=== PATIENT | male | born 1970 | race African-American/Black ===

== ENCOUNTER 2020-09-28 00:16 | Emergency (ER) | payer OTHER, SELFPAY ==
[2020-09-28 00:26] VITALS: BP 138/66; PULSE 87; RESP 18; TEMP 36.6; O2SAT 97
--- NOTE | 2020-09-28 02:09 | ED_ITS ---
HPI - Extremity Problem General Chief complaint: Extremity Problem,Nontraumatic Stated complaint: swelling to lower extremities Time Seen by Provider: 09/28/20 00:29 History of Present Illness HPI Narrative: Patient is a 50-year-old male who presents ER with lower extremity swelling. Worsening over the last couple of days. Reports he has been out of his Lasix. He would like to have it refilled. He is unsure on the dose that he takes. He denies any chest pain or chest pressure. No shortness of breath. No exertional weakness. He is noticed some weeping coming from his legs that is new. Also reports some pink discoloration that occurs when his fluid builds up. He has been afebrile. Review of Systems Review of Systems: All systems reviewed & are unremarkable except as noted in HPI and below Constitutional: Constitutional: Denies chills, Denies fever(s) and Denies w eakness Cardiovascular: Cardiovascular: Denies chest pain and Denies radiating jaw, neck or arm pain Respiratory: Respiratory: Denies cough, Denies dyspnea and Denies wheezing Gastrointestinal: Gastrointestinal: Denies nausea and Denies vomiting Musculoskeletal: Musculoskeletal: Denies back pain and Denies muscle cramps Comments: Lower extremity edema Integumentary/Breasts: Skin/Breast: Reports skin ulcer (Weeping serous fluid) Exam Narrative: Exam Narrative: GENERAL: Well-appearing, morbidly obese, and in no acute distress. HEAD: Normocephalic, atraumatic. ENT: Mucous membranes moist. CHEST: Clear to auscultation. No respiratory distress. HEART: Regular rate and rhythm. Normal peripheral pulses. ABDOMEN: Soft, nontender, nondistended, normal active bowel sounds. EXTREMITIES: Normal range of motion. 3+ edema. SKIN: Warm, dry. Slight erythema to lower extremities bilaterally likely representing reactive edema. There are some weeping ulcers to the same area bilaterally. NEURO: Alert and oriented x3. PSYCH: Normal mood and affect. Course Course Emergency Course: Chart review shows patient last filled Lasix 40 mg on July 12. Patient likely poorly compliant. Will discharge with a prescription of Lasix and he needs to follow-up with his primary care physician. Vital Signs Vital signs: Vital Signs Temperature 98 F 09/28/20 00:26 Pulse Rate 87 09/28/20 00:26 Respiratory Rate 18 09/28/20 00:26 Blood Pressure 138/66 09/28/20 00:26 Pulse Oximetry 97 09/28/20 00:26 Temperature 98 F 09/28/20 00:26 Pulse Rate 87 09/28/20 00:26 Respiratory Rate 18 09/28/20 00:26 Blood Pressure 138/66 09/28/20 00:26 Pulse Oximetry 97 09/28/20 00:26 Discharge Plan Discharge Clinical Impression: Edema of lower extremity Patient Disposition: Home, Self-Care Condition: Stable Instructions: Edema (ED) Additional Instructions: Return the ER if you have chest pain or shortness of breath, you have fever over 100.4 ?F, you have additional concerns. Take your Lasix to help the swelling in her legs go down. Follow-up with your primary care doctor so you can have your prescription written at regular intervals. Prescriptions: New furosemide 40 mg tablet 40 mg PO DAILY Qty: 30 RF: 0 Follow-up/Referrals: Manisha,MD Ryan [Primary Care Provider] - 1 Week
[2020-09-28] MEDS: FUROSEMIDE INJ 40 MG/4 ML VIAL IV PUSH (02:44)
[2020-09-28 04:05] VITALS: BP 134/70; PULSE 72; RESP 18; O2SAT 97
== END 2020-09-28 04:07 | disposition home or self-care (01) ==
PROVIDERS: Emergency Provider Emergency Medicine; PCP Internal Medicine
DX: R60.0 Localized edema (principal)
CPT/HCPCS: 96374; 99284; J1940

== ENCOUNTER 2020-11-01 15:03 | Emergency (ER) | payer OTHER, SELFPAY ==
--- NOTE | 2020-11-01 16:11 | ED.WOUNDLAC ---
HPI - Wound/Laceration General Chief Complaint: Skin/Abscess/Foreign Body Stated Complaint: non healing wound Time Seen by Provider: 11/01/20 16:31 Source: patient and RN notes reviewed Mode of arrival: ambulatory Limitations: no limitations History of Present Illness HPI narrative: 50-year-old male presents concern for chronic wounds on his left lower leg. Reports that wounds have been present for approximately 8 months. Reports he was seen in the emergency room and given Lasix for which she has been taking for approximately a month, however he is out. Reports he is on been unable to see his primary care doctor. He denies any purulent drainage from the wounds, denies any injury. Reports bilateral lower leg swelling. Related Data Allergies Allergy/AdvReac Type Severity Reaction Status Date / Time Penicillins Allergy Severe Anaphylaxis Verified 11/01/20 16:48 Review of Systems Review of Systems: Narrative: CONSTITUTIONAL: Denies malaise, chills, sweats, or fever. CARDIOVASCULAR: Denies chest pain, palpitations, or edema. RESPIRATORY: Denies cough or dyspnea. SKIN: Reports chronic wounds on the left lower leg MUSCULOSKELETAL: Denies muscle skeletal pain, reports bilateral lower leg swelling All systems reviewed & are unremarkable except as noted in HPI and below PMFSH Comments At time of signature, agree with nursing past medical, surgical, social and family history. There is no relevant family history pertinent to the presenting complaint Exam Narrative: Exam Narrative: GENERAL: Well-appearing, well-nourished, and in no acute distress. HEAD: Normocephalic, atraumatic. EYES: PERRLA, conjunctivae clear, and EOMI. ENT: Mucous membranes moist. NECK: Supple. No lymphadenopathy CHEST: Clear to auscultation. No respiratory distress. Bilateral lower extremity nonpitting edema HEART: Regular rate and rhythm. SKIN: Warm, dry. Chronic wounds in various stages of healing to the left lower leg above the ankle, no induration, purulent drainage noted. NEURO: Alert and oriented x3. PSYCH: Normal mood and affect Course Course Emergency Course: Extensive discussion with patient regarding peripheral vascular disease, proper care for his legs, proper follow-up with his primary care provider. Patient is aware of diagnosis, understands and agrees to treatment plan. Anticipatory guidance given. Patient agrees to follow-up as directed and is aware of reasons to seek care at the emergency department. Portions of this record may have been created with voice recognition software Vital Signs Vital signs: Reviewed. MDM - Wound/Laceration MDM Narrative Medical decision making narrative: Exam findings show no acute concerns or changes; patient is non-toxic appearing and is in no distress. Patient is appropriate for outpatient treatment and follow-up. Critical Care Time Critical Care Time Critical Care Time: No Discharge Plan Discharge Clinical Impression: Edema of both lower legs, Chronic wound of extremity, Medication refill Patient Disposition: Home, Self-Care Condition: Stable Instructions: Antibiotic Form, Peripheral Vascular Disease (ED) Additional Instructions: Take antibiotic as directed. Apply lotion to your lower legs daily. Use compression socks daily during waking hours, you may take off at nighttime. Wear every day of the week. Elevate your legs as often as possible. Follow-up with your primary care doctor regarding your lower leg swelling and evaluation and treatment. If wounds continue to have slow healing follow-up with your primary care doctor for referral to wound care. Prescriptions: New (DME) compr.stocking,knee,long,x-lrg Misc See Rx Instructions .Route Qty: 2 RF: 0 azithromycin [Zithromax Z-Breezy] 250 mg tablet See Rx Instructions .ROUTE .COMPLEX Qty: 6 RF: 0 furosemide [Lasix] 40 mg tablet 40 mg PO DAILY Qty: 30 RF: 0 No Action furosemide 40 mg tablet 40 mg PO DAILY Qty: 30
[2020-11-01 16:26] VITALS: BP 140/88; PULSE 92; RESP 19; TEMP 36.1; O2SAT 98
== END 2020-11-01 17:00 | disposition home or self-care (01) ==
PROVIDERS: Emergency Provider Nurse Practitioner
DX: R60.0 Localized edema (principal); S81.802A Unspecified open wound, left lower leg, initial encounter; X58.XXXA Exposure to other specified factors, initial encounter; Z76.0 Encounter for issue of repeat prescription; I10 Essential (primary) hypertension
CPT/HCPCS: 99213; G0463

== ENCOUNTER 2021-11-25 12:46 | Outpatient (CLI) | payer OTHER, SELFPAY ==
--- NOTE | 2021-11-25 | ECHO_ITS ---
Patient Info Name: Anabelle Maki Javier Age: 51 years : 1970 Gender: Male Ht: 72 in Wt: 430 lbs BSA: 3.26 m2 HR: 95 bpm BP: 137 / 85 mmHg Heart Rhythm: Sinus Rhythm Technical Quality: Poor Exam Date: 11/25/2021 1:23 PM Exam Location: [facility] Patient Status: Outpatient Admit Date: 11/25/2021 Staff Ordering Physician: JaniceMaegan Senior Procurement Manager: Stacie Vazquez RDCS Attending Provider: Maegan Alaniz Exam Type: CA echo doppler color flow Study Info Indications I50.9 - Heart failure, unspecified Complete two-dimensional, color flow and Doppler transthoracic echocardiogram is performed. Reason for Poor Study: patient body habitus Summary 1. Complete two-dimensional, color flow and Doppler transthoracic echocardiogram is performed. 2. Left ventricular chamber dimension is normal. 3. Left ventricular systolic function is normal, estimated at 65-70%. 4. There is mildly increased left ventricular wall thickness. 5. The left ventricular diastolic function is normal. 6. Right ventricular chamber dimension is mildly enlarged. 7. Right ventricular systolic function is reduced. 8. There is mild tricuspid valve regurgitation. 9. Mild pulmonary hypertension, estimated pulmonary arterial systolic pressure is 44 mmHg. 10. There is mild pulmonic regurgitation. Left Ventricle Left ventricular chamber dimension is normal. Left ventricular systolic function is normal, estimated at 65-70%. There is mildly increased left ventricular wall thickness. The left ventricular diastolic function is normal. Right Ventricle Right ventricular chamber dimension is mildly enlarged. Right ventricular systolic function is reduced. Left Atria Left atrial chamber dimension is normal. Right Atria Right atrial chamber dimension is normal. Atrial Septum Intact interatrial septum visualized by color flow imaging. Aortic Valve The aortic valve is trileaflet. There is no aortic valve sclerosis. There is no aortic valve stenosis. There is trace aortic valve regurgitation. Pulmonic Valve The pulmonic valve is normal. There is no pulmonic valve stenosis. There is mild pulmonic regurgitation. Mitral Valve The mitral valve has thickened leaflets. There is no mitral valve stenosis. There is trace mitral valve regurgitation. Tricuspid Valve The tricuspid valve leaflets are normal. There is no significant tricuspid valve stenosis. There is mild tricuspid valve regurgitation. Mild pulmonary hypertension, estimated pulmonary arterial systolic pressure is 44 mmHg. Pericardium/Pleural The pericardium appears normal. There is no pericardial effusion. Inferior Vena Cava Dilated inferior vena cava with >50% collapse upon inspiration consistent with elevated right atrial pressure, 10 mmHg. Aorta The aortic root size at the sinus of Valsalva is normal. Left Ventricular Outflow Tract Name Value Normal LVOT 2D LVOT Diameter 2.0 cm LVOT Doppler LVOT Peak Gradient 4 mmHg LVOT Mean Gradient 3 mmHg LVOT VTI
== END 2021-11-25 12:47 | disposition home or self-care (01) ==
PROVIDERS: PCP Physician Assistant; Visit Provider Physician Assistant
DX: I50.9 Heart failure, unspecified (principal); I27.20 Pulmonary hypertension, unspecified; I08.3 Combined rheumatic disorders of mitral, aortic and tricuspid valves
CPT/HCPCS: 93306

== ENCOUNTER 2022-05-26 20:30 | Emergency (ER) | payer OTHER, SELFPAY ==
[2022-05-26] VITALS (19 sets, daily range): BP systolic 117–144; BP diastolic 72–108; PULSE 97–122; RESP 17–37; TEMP 36.6; O2SAT 92–93
--- NOTE | ~2022-05-26 | CT_ITS ---
EXAMINATION: CTA chest PE protocol DATE: 05/27/2022 08:10 SENIOR COMMUNICATIONS SPECIALIST INDICATION: Dyspnea. TECHNIQUE: Computed tomographic angiography (CTA) of the chest was performed with 100 mL Omnipaque-35 0 intravenous contrast. The dose-length product was 1078.84 mGy-cm. Maximum intensity projection 3D-r econstructions of the aorta and other arteries were constructed by the technologist on a separate wor kstation. Automated exposure control and iterative reconstruction technique were employed. COMPARISON: Chest x-ray dated 05/26/2022. FINDINGS: Study is technically adequate. There is a large thrombus burden involving the main pulmonar y arteries as well as the segmental branches of all lobes. There is hiatal hernia. No significant ple ural or pericardial effusion. No thoracic lymphadenopathy. There is evidence for right heart strain. There are irregular shaped masses of the left upper lobe, largest measuring 2.5 cm. There are subsegm ental left lower lobe nodules. No endobronchial lesions. No pneumothorax. IMPRESSION: 1. Extensive bilateral pulmonary embolism, large thrombus burden. 2: Left upper and lower lobe pulmonary nodules, largest left upper lobe measuring 2.5 cm. These may b e secondary to infectious/inflammatory process, although malignancy is not excluded. These nodules quijano ve an atypical appearance for pulmonary infarction. Reviewed, dictated and finalized at location A. OR COMMUNICATIONS SPECIALIST IMPRESSION: 1. Extensive bilateral pulmonary embolism, large thrombus burden. 2: Left upper and lower lobe pulmonary nodules, largest left upper lobe measuri ng 2.5 cm. These may be secondary to infectious/inflammatory process, although malignancy is not excluded. These nodules have an atypical appearance for pulmo nary infarction.
--- NOTE | ~2022-05-26 | XR_ITS ---
EXAMINATION: XR chest 1V portable Exam Date/Time: 05/26/2022 22:08 TYPING BOOKKEEPER HISTORY: cough, sob. hx htn Comparison: None available. RESULT: Lines, tubes, and devices: None. Lungs and pleura: Clear. Cardiomediastinal silhouette: Unremarkable. Other: No acute osseous or upper abdominal finding. IMPRESSION: No acute cardiopulmonary process. Reviewed, dictated and finalized at location K. NG BOOKKEEPER
--- NOTE | 2022-05-26 20:43 | ECG_ITS ---
Measurements Intervals Coram Rate: 113 P: 208 DE: 81 QRS: 108 QRSD: 189 T: -49 QT: 396 QTc: 545 Interpretive Statements Probable AFib RVR INDETERMINATE AXIS INTRAVENTRICULAR CONDUCTION DELAY [130+ ms QRS DURATION] NO PREVIOUS ECG AVAILABLE FOR COMPARISON Electronically Signed On 05-27-2022 12:49:52 ORGANIC CHEMISTRY PROFESSOR by Raysa Villarreal M.D.
[2022-05-26] MEDS: IPRATROPIUM BR 0.02% INH SOLN 0.5 MG/2.5 ML VIAL INHALATION (20:58)
[2022-05-26] MEDS: ALBUTEROL SULFATE NEB 2.5 MG/3 ML INH INHALATION (20:58)
[2022-05-26 21:08] LABS: Alveolar/Arterial O2 Gradient 132.4 mmHg; Base Excess ABG -0.5 mEq/l (+/-2.0); Fractional Inspired Oxygen 32 %; HCO3 ABG 22.7 mEq/l (22.0-26.0); Oxygen Content ABG 16.5 %vol (16.0-22.0); Oxygen Saturation ABG 91.1 % (95.0-100.0); PCO2 ABG 33.4 mmHg (35.0-45.0); PO2 ABG 56.7 mmHg (80.0-100.0); PO2 FiO2 Ratio Arterial Blood 1.77 %; Total Hemoglobin 13.5 g/dL (12.0-18.0); pH ABG 7.451 (7.350-7.450)
[2022-05-26 21:09] LABS: Device NASAL CANNULA; Modified Allen's Test Pass; Oxyhemoglobin 87.2 % THb (90.0-100.0); Site Drawn RIGHT RADIAL
--- NOTE | 2022-05-26 21:13 | ED.GENADULT ---
HPI - General Adult General Chief complaint: Shortness of Breath/Dyspnea Stated complaint: sob Time Seen by Provider: 05/26/22 20:34 History of Present Illness HPI narrative: Patient 52-year-old gentleman who presents emerged part with chief complaint of shortness of breath. The patient reports that he was recently started on doxycycline for ulcerations on his lower extremities. Patient reports that he started vomiting and then today started feeling very short of breath. Patient reports that when EMS arrived they started him on oxygen Related Data Allergies Allergy/AdvReac Type Severity Reaction Status Date / Time Penicillins Allergy Severe Anaphylaxis Verified 11/01/20 16:48 Review of Systems Review of Systems: A 10 system review of systems was completed on the patient and is negative except for what is stated in the HPI. Nursing and ancillary documentation was reviewed. Exam Narrative: GENERAL: Well-appearing, well-nourished, and in no acute distress. HEAD: Normocephalic, atraumatic. EYES: PERRLA and EOMI. ENT: Nares clear, no rhinorrhea or epistaxis. Mucous membranes moist. NECK: Supple. CHEST: Clear to auscultation. No respiratory distress. HEART: Regular rate and rhythm. No murmur heard. Normal peripheral pulses. ABDOMEN: Soft, nontender, nondistended, normal active bowel sounds. EXTREMITIES: Normal range of motion. No edema. SKIN: Warm, dry, no rash. NEURO: No focal deficits. Alert and oriented x3. PSYCH: Normal mood and affect. Course Course Emergency Course: Patient has history of prior DVT. The patient was hypoxic in the emergency department and requiring supplemental oxygen. ABG showed respiratory alkalosis and hypoxia. Chest x-ray did not show a focal infiltrate. The patient had a elevated troponin and a BNP that was 2020. Due to this there is concern for possible PE CTA chest showed evidence of extensive bilateral PEs with right heart strain. Patient was started on heparin drip Due to the right heart strain the case was discussed with the [facility] for possible intervention. The case was discussed with the fellow on-call and the patient was excepted to the ICU as a wait by attending Dr. Gavin Vital Signs Vital signs: Vital Signs Pulse Rate 103 H 05/26/22 21:06 Respiratory Rate 22 H 05/26/22 21:06 Temperature 36.6 C 05/26/22 21:08 Pulse Rate 111 H 05/26/22 21:14 Respiratory Rate 20 05/26/22 21:14 Blood Pressure 144/72 H 05/26/22 21:08 Pulse Oximetry 93 05/26/22 21:08 Oxygen Delivery Nasal Cannula 05/26/22 21:08 Oxygen Flow Rate 3 05/26/22 21:08 Medical Decision Making Vital Signs Vital Signs: Vital Signs Pulse Rate 103 H 05/26/22 21:06 Respiratory Rate 22 H 05/26/22 21:06 Temperature 36.6 C 05/26/22 21:08 Pulse Rate 111 H 05/26/22 21:14 Respiratory Rate 20 05/26/22 21:14 Blood Pressure 144/72 H 05/26/22 21:08 Pulse Oximetry 93 05/26/22 21:08 Oxygen Delivery Nasal Cannula 05/26/22 21:08 Oxygen Flow Rate 3 05/26/22 21:08 Lab Data 05/26/22 21:50 05/26/22 21:50 Labs: Lab Results 05/26/22 05/26/22 05/26/22 Range/Units 21:50 21:50 21:50 WBC 11.0 H (4.5-10.0) K/mm3 RBC 4.41 L (4.6-6.20) M/mm3 Hgb 12.6 L (14.0-18.0) g/dL Hct 39.0 L (42.0-52.0) % MCV 88.4 (80-100) fl MCH 28.6 (26-34) pg MCHC 32.3 (32-36) g/dl RDW 15.5 H (11.5-14.5) % Plt Count 173 (150-375) k/mm3 MPV 11.6 H (7.4-10.4) fl Immature Gran % (Auto) 0.4 (0-0.5) % Neut % (Auto) 82.5 H (45.5-73.1) % Lymph % (Auto) 10.7 L (18.3-44.2) % [place] % (Auto) 5.5 (2.6-8.5) % Eos % (Auto) 0.7 (0-4.4) % Baso % (Auto) 0.2 (0.2-1.2) % Lymph # (Auto) 1.17 (0.9-3.2) K/mm3 [place] # (Auto) 0.6 (0.1-0.6) K/mm3 Eos # (Auto) 0.1 (0-0.3) K/mm3 Baso # (Auto) 0.0 (0.0-0.1) K/mm3 Abs Immat Gran (auto) 0.04 H (0.00-0.031) K/mm3 Absol
[2022-05-26 22:14] LABS: Basophils Percent Auto 0.2 % (0.2-1.2); Eosinophils Absolute Auto 0.1 K/mm3 (0-0.3); Eosinophils Percent Auto 0.7 % (0-4.4); Hemoglobin 12.6 g/dL (14.0-18.0); Immature Granulocyte Absolute 0.04 K/mm3 (0.00-0.031); Immature Granulocyte Percent A 0.4 % (0-0.5); Lymphocytes Absolute Auto 1.17 K/mm3 (0.9-3.2); Lymphocytes Percent Auto 10.7 % (18.3-44.2); Mean Corpuscular HGB Conc 32.3 g/dl (32-36); Mean Corpuscular Hemoglobin 28.6 pg (26-34); Mean Corpuscular Volume 88.4 fl (80-100); Mean Platelet Volume 11.6 fl (7.4-10.4); Monocytes Absolute Auto 0.6 K/mm3 (0.1-0.6); Monocytes Percent Auto 5.5 % (2.6-8.5); Neutrophils Absolute Auto 9.1 K/mm3 (1.3-6.7); Neutrophils Percent Auto 82.5 % (45.5-73.1); Platelet Count Result 173 k/mm3 (150-375); Red Blood Count 4.41 M/mm3 (4.6-6.20); Red Cell Distribution Width 15.5 % (11.5-14.5)
[2022-05-26 22:31] LABS: INR 1.3; Partial Thromboplastin Time 26.7 SECONDS (22.3-36.8); Prothrombin Time 15.2 Seconds (11.1-14.7)
[2022-05-26 22:40] LABS: Alanine Aminotransferase 81 U/L (6-50); Albumin Level 3.9 g/dL (3.5-5.1); Alkaline Phosphatase 108 U/L (38-126); Anion Gap 11 mmol/L (8-16); Aspartate Amino Transferase 63 U/L (17-59); Bilirubin,Total 0.5 mg/dL (0.2-1.3); Blood Urea Nitrogen 21 mg/dL (9-20); Calcium 8.6 mg/dL (8.4-10.2); Carbon Dioxide 20 mmol/L (22-30); Chloride 108 mmol/L (98-107); Estimated Glomerular Filt Rate > 60; Glucose 176 mg/dL (65-110); Lipase 60 U/L (23-300); Magnesium 1.9 mg/dL (1.6-2.3); Potassium 4.4 mmol/L (3.4-5.0); Sodium 139 mmol/L (137-145)
[2022-05-26 22:57] LABS: NT Pro B Type Natriuretic Pept 2120 pg/mL (19.9-100); Troponin I 0.104 ng/mL (0.000-0.034)
[2022-05-26 23:11] LABS: Lactic Acid Reflex 1.8 mmol/L (0.7-2.0)
[2022-05-26 23:14] LABS: Procalcitonin 0.1 ng/mL
[2022-05-27] VITALS (31 sets, daily range): BP systolic 114–156; BP diastolic 79–110; PULSE 91–116; RESP 16–29; O2SAT 90–95
[2022-05-27] MEDS: HEPARIN SODIUM 5,000 UNITS/ML VIAL 8500 UNITS IV PUSH (03:14)
[2022-05-27] MEDS: HEPARIN SOD/D5W 100 UNITS/ML 25,000 UNITS/250 ML BAG 15 UNITS IV CONT (03:15)
[2022-05-27 05:17] LABS: Appearance Urine Clear (Clear); Bilirubin Urine Negative (Negative); Blood Urine Trace-lysed (Negative); Color Urine Yellow (Yellow); Glucose Urine UA Negative (Negative); Ketones Urine Negative (Negative); Leukocyte Esterase Ur Negative LEU/UL (Negative); Nitrate Urine Negative (Negative); Protein Urine 3+ mg/dL (Negative); Specific Grav Ur 1.025 (1.001-1.035); Urobilinogen Urine 0.2 mg/dL (<2.0); pH Urine 5.5 (5.0-9.0)
[2022-05-27 05:37] LABS: Influenza A QL RT-PCR Negative (Negative); Influenza B QL RT-PCR Negative (Negative); RSV RNA, RT-PCR Negative (Negative); SARS-CoV-2 RNA PCR Negative
[2022-05-27 05:40] LABS: Mucus Urine Rare /lpf; Squamous Epithelial Cell Urine Rare /hpf (Few); WBC Urine 0-3 /hpf
[2022-05-27 05:53] LABS: Add Urine Microscopic? YES
--- NOTE | 2022-05-27 05:58 | PC.NURSE ---
Covid and flu results negative. Called Desiree RN at transfer center. Patient's bed asignment is 8421 bed 1 out the [facility] in the ICU. Phone number is [phone] Report given.
[2022-05-27 06:50] LABS: Basophils Percent Auto 0.2 % (0.2-1.2); Eosinophils Absolute Auto 0.2 K/mm3 (0-0.3); Eosinophils Percent Auto 1.8 % (0-4.4); Hematocrit 37.5 % (42.0-52.0); Hemoglobin 12.1 g/dL (14.0-18.0); Immature Granulocyte Absolute 0.02 K/mm3 (0.00-0.031); Immature Granulocyte Percent A 0.2 % (0-0.5); Lymphocytes Absolute Auto 2.54 K/mm3 (0.9-3.2); Lymphocytes Percent Auto 25.5 % (18.3-44.2); Mean Corpuscular HGB Conc 32.3 g/dl (32-36); Mean Corpuscular Hemoglobin 28.7 pg (26-34); Mean Corpuscular Volume 89.1 fl (80-100); Monocytes Absolute Auto 0.9 K/mm3 (0.1-0.6); Monocytes Percent Auto 8.8 % (2.6-8.5); Neutrophils Absolute Auto 6.3 K/mm3 (1.3-6.7); Neutrophils Percent Auto 63.5 % (45.5-73.1); Nucleated Red Blood Cells Perc 0.2 % (0.0-0.2); Platelet Count Result 144 k/mm3 (150-375); Red Blood Count 4.21 M/mm3 (4.6-6.20); Red Cell Distribution Width 15.8 % (11.5-14.5)
[2022-05-27 06:52] LABS: Troponin I 0.113 ng/mL (0.000-0.034)
[2022-05-27 07:17] LABS: INR 1.3; Prothrombin Time 16.1 Seconds (11.1-14.7)
[2022-05-27 07:20] LABS: Partial Thromboplastin Time 109.9 SECONDS (22.3-36.8)
--- NOTE | 2022-05-27 07:39 | PC.NURSE ---
Report given to Holly CHAMBERS at [facility].
[2022-05-27 09:30] LABS: Partial Thromboplastin Time 43.7 SECONDS (22.3-36.8)
== END 2022-05-27 11:10 | disposition short-term general hospital (02) ==
PROVIDERS: Emergency Provider Emergency Medicine; PCP Physician Assistant
DX: I26.09 Other pulmonary embolism with acute cor pulmonale (principal); Z86.718 Personal history of other venous thrombosis and embolism; Z20.822 Contact with and (suspected) exposure to COVID-19; R91.8 Other nonspecific abnormal finding of lung field; R94.31 Abnormal electrocardiogram [ECG] [EKG]; I45.9 Conduction disorder, unspecified
CPT/HCPCS: 36415; 36600; 71045; 71275; 80053; 81001; 82805; 83605; 83690; 83735; 83880; 84145; 84484; 85025; 85610; 85730; 87040; 87637; 93005; 94640; 96365; 96366; 99291; J1644; Q9967

== ENCOUNTER 2025-03-21 23:06 | Emergency (ER) | payer OTHER, SELFPAY ==
[2025-03-21 23:08] VITALS: BP 144/78; PULSE 62; RESP 18; TEMP 36.8; O2SAT 99
--- OUTSIDE RECORDS SUMMARY | 2025-03-21 23:08 | XMS_ITS | Data Portability ---
Author Organization [place] - [facility] OFFICE Address [address] [place] [address] Care Team Providers Care An/Ssn 2 4 Operator Name Role Phone MAZIN RIVERA Primary Care Provider [phone] Assessment Encounter Date Assessment Date Assessment LastModified by Organization Details LastModified Time 05/10/2019 05/10/2019 Discussed with patient findings, diagnosis, and prognosis. Discussed evaluation and treatment options including risks and benefits with patient, and patient expressed understanding. The following interventions were recommended: heart healthy low-fat, low-sodium diet, avoid strenuous exercise pending completion of cardiovascular evaluation, maintain appropriate weight, continue current medications, and medical follow-up as noted. [email or web address] Not available 05/10/2019 17:37:39 Plan of Treatment Reminders Order Date Submit Date Provider Last Modified By Organization Details Last Modified Time Details Appointments None recorded. Lab None recorded. Referral None recorded. Procedures None recorded. Surgeries None recorded. Imaging electrocar diogram 2019 [email or web address] Not available 0 18:01:44 Medication Orders furosemide 40 mg tablet 2019 [employer] [employer], [employer], [address] [place] [address], [id number], 0 18:02:54 potassium chloride ER 20 mEq tablet,ext ended release 2019 [facility], [address] [place] [address], [id number], 0 18:02:52 Patient TargetsNo targets recorded. Patient Instructions Encounter Date Encounter Id Patient Instructions Last Modified By Organization Details Last Modified Time 05/10/2019 [id number] When You Want to Lose Weight: Care Instructions [email or web address] Not available 05/10/2019 18:01:44 Reason for Referral None Reported. Results Created Date Observation Date Name Description Value Unit Range Abnormal Flag Note LastModifiedBy Organization Detail LastModifiedTime 05/04/19 elect rocar diogr am No observ ation record ed. [email or web address] Not Available 2019 06:25:36 05/04/19 20 04/26/2019 elect rocar diogr am No observ ation record ed. [email or web address] Not Available 2019 06:25:36 05/04/19 20 04/26/2019 elect rocar diogr am No observ ation record ed. [email or web address] Not Available 2019 13:23:16 05/12/19 20 04/27/2019 US, echoc ardio gram No observ ation record ed. [email or web address] Not Available 2019 11:35:52 05/12/19 20 04/27/2019 CT, angio gram, chest , w/ contr ast No observ ation record ed. [email or web address] Not Available 2019 11:38:00 05/12/19 20 04/26/2019 US, doppl er, venou s No observ ation record ed. [email or web address] Not Available 2019 11:39:10 05/12/19 20 04/26/2019 elect rocar diogr am No observ ation record ed. [email or web address] Not Available 2019 11:42:45 05/12/19 20 05/10/2019 elect rocar diogr am No observ ation record ed. [email or web address] Not Available 05/15 12:17:19 Result Notes None recorded. Problems Name Problem SNOMED Code Status Onset Date Resolution Date Notes Provider Name and Address Organization Details Recorded Time Dyspnea 298918138 Active 2019 Magdiel matthews, [place] - [facility] 0 14:13:45 Pain of right lower leg 694363240176 108 Active 2019 and swelling Magdiel matthews, [place] - [facility] 0 14:14:16 Obesity 118833402 Active 2019 Magdiel matthews, [place] - [facility] 0 14:28:10 Edema of lower extremity 488239866 Active 2019 Magdiel Che [facility], [facility] 0 14:28:33 Congestiv e heart failure 50974165 Active 2019 Veloz [facility], [facility] 0 14:29:42 Obstructi ve sleep apnea syndrome 58149779 Active 2019 Velozchaka Che [facility], [facility] 0 14:29:48 Deep venous thrombosi s 061416154 Active 2019 Magdiel Che [facility], [facility] 0 14:30:00 Hypoxemia 602505828 Active 2019 Velozchaka Che [facility], [facility] 0 14:30:07 Pulmonary embolism 26328751 Active 2019 Velozchaka Che [facility] 0 14:30:22 Heart failure with reduced ejection fraction 231029328 Active 2019 Fausto Selby [facility] 0 17:23:07 Problem Notes None recorded. Medical Equipment None Reported. Allergies Allergen ID Allergen Name Allergen Category Reaction Reaction Severity Criticality Documentation Date Start Date Code Code System Note Provider Name and Address Organization Details Recorded Time 9509 Product containin g penicilli n (product) medicatio n Not available Not available Not available 05/08/2019 27679 8001 SN[facility]ED [facility] 0 14:19:44 Medications Name Sig Start Date Stop Date Status Note LastModified by Organization Details LastModified Time furosemide 40 mg tablet Take 1 tablet twice a day by oral route. active Not Available Not Available No t Available warfarin 2.5 mg tablet Take 1 tablet every day by oral route at bedtime. active Not Available Not Available No t Available potassium chloride ER 10 mEq tablet,exten ded release 02/10 completed Not Available Not Available Not Available carvedilol 3.125 mg tablet Take 1 tablet twice a day by oral route. active Not Available Not Available No t Available magnesium oxide 400 mg (241.3 mg magnesium) tablet 02/10 completed Not Available Not Available Not Available lisinopril 10 mg tablet Take 1 tablet every day by oral route. active Not Available Not Available No t Available warfarin 5 mg tablet Take 2 tablets every day by oral route. active Not Available Not Available No t Available warfarin 1 mg tablet Take 1 tablet every day by oral route. 2019 active Not Available Not Available Not Avai lable furosemide 02/10 completed Not Available Not Available Not Available magnesium 400 mg (as magnesium oxide) capsule Take 1 capsule every day by oral route. active Not Available Not Available No t Available potassium chloride ER 20 mEq tablet,exten ded release Take 1 tablet every day by oral route. 2019 active Not Available Not Available Not Avai lable Vitals Date Recorded Body height Body mass index (BMI) Body weight Heart rate Oxygen saturation Systolic And Diastolic Provider Name and Address Organization Details Last Updated DateTime 0 182.88 cm 47.6 kg/m2 946146. 92 g 83 /min 98 % 120/70 mm[Hg] Namita Jeffrey [facility] 0 15:47:22 Social History Question Answer Notes LastModified by Organizat ion Details LastModified Time Tobacco Smoking Status [facility] 14:23:29 Which Illicit Or Recreational Drugs Have You Used? None Information not available 05/08/2019 What Was The Date Of Your Most Recent Tobacco Screening? 04/27/2019 Information not available 05/08/2019 How Much Tobacco Do You Smoke? No Information not available 05/08/2019 How Many Years Have You Smoked Tobacco? 0 Information not available 06/26/2019 Sex: Unknown Functional Status Question Answer Note LastModified by Organizat ion Details LastModified Time What is your level of alcohol consumption? None Information not available 05/08/2019 Do you or have you ever used smokeless tobacco? Never used smokeless tobacco Information not available 05/08/2019 Do you or have you ever used e-cigarettes or vape? Never used electronic cigarettes Information not available 05/08/2019 Mental Status None recorded. Family History Relationship Description Onset Age of this Age Resolved Age Notes LastModified by Organization Details LastModified Time Father Malignant neoplastic disease [email or web address] Not available 2019 14:29:12 Medical History Condition Response Sleep Apnea Y Deep Vein Thrombosis Y Congenital Heart Disease Y Past Encounters Encounter ID Performer Location Encounter Start Date Encounter Closed Date Diagnosis/Indication Diagnosis SNOMED-CT Code Diagnosis ICD10 Code Diagnosis IMO Codes Diagnosis Note [id number] Fausto Selby MD [facility] OFFICE [address] [place] [address] 05/10/2019 15:15:33 05/10/2019 18:02:01 Heart failure with reduced ejection fraction 209088712 I50.9 Appear euvolemic. Had ECHO 04/27/19: normal LV size and thickness, low normal LV systolic function with LVEF 45-50%, D shaped septum consistent with RV pressure overload, IVC RV dilated with mild to moderate RV dysfunctio n (in setting of acute PE and DVT). Obtain BMP, Mg. Pulmonary embolism 39420 003 I26.99 Had PE and DVT 04/26/2019, with old DVT right leg as well in 2014. No recent surgery or immobility , but has morbid obesity. Given unprovoked recurrent DVT and new PE, needs chronic anti-coagu lation. No family history of thromboemb olism. Had CTA chest 04/27/19: large acute occlusive, saddle type PE noted in bilateral PA, with RV strain. Had LE Doppler 04/26/19: acute DVT right leg involving right popliteal vein, old DVT right calf veins. Had ECHO 04/27/19: normal LV size and thickness, low normal LV systolic function with LVEF 45-50%, D shaped septum consistent with RV pressure overload, IVC RV dilated with mild to moderate RV dysfunctio n (in setting of acute PE and DVT). Patient is on warfarin 12.5 mg qHS. He has not had INR since hospital discharge 05/02/19 despite instructio ns to obtain INR 05/05/19. Needs INR now so will obtain in [facility] office in early AM. Obesity 474864324 E66.9 20 lb. weight loss recommende d over the next 2 months. Health Concerns Section Related Observation LastModified by Organization Nilsa ls LastModified Time None Recorded Concern Status LastModified by Organization Details LastModified Time None Recorded Advance Directives Directive None Recorded Payers Insurance Date Sequence Insurance Name Policy Number Policy Monique Covered Member ID Monique Member ID Guarantor Name 09/11/2019 1 [facility] - DOS PRIOR TO 2020 (MEDICAID REPLACEMENT - HMO) Anabelle Maki Javier [id number] Anabelle Maki Javier Notes Date Note Type Note Provider Name and Address Organization Details Recorded Time 05/10/2019 text/html 05/10/19 CC : Shortness of breath 49 year-old -[place] man with history pulmonary embolism, deep vein thrombosis (04/26/19 and 2014), congestive heart failure, obesity, is here for follow up . He was in [facility] in 04/26/19 because of chest heaviness and shortness of breath, in setting of PE and DVT. He was seen by vascular surgery but did not have EKOS. Had CTA chest 04/27/19: large acute occlusive, saddle type PE noted in bilateral PA, with RV strain. Had LE Doppler 04/26/19: acute DVT right leg involving right popliteal vein, old DVT right calf veins. Had ECHO 04/27/19: normal LV size and thickness, low normal LV systolic function with LVEF 45-50%, D shaped septum consistent with RV pressure overload, IVC RV dilated with mild to moderate RV dysfunction (in setting of acute PE and DVT). He was started on lisinopril and carvedilol. Patient reports feeling well overall. Patient is active, but is not exercising regularly. No chest pain. No arm pain. No neck pain. No nausea and vomiting. No diaphoresis. No shortness of breath at rest. No dyspnea on exertion. No fatigue.No orthopnea. No PND. No leg swelling. No palpitation. No dizziness. No syncope . No pre-syncope. No claudication. No major bleeding events. No side effects from medications. Complete ROS negative except as stated in the HPI and ROS. No history of obstructive sleep apnea. Denies snoring. No daytime somnolence. Reports dry occasional cough. Results from this visit, or from the past: BMP, serum or plasma 05-02-2019 05/02/19 BMP; NA 135, K 5.1, CL 94, C02 28, GLU 125, BUN 28, CR 1.3 CBC w/ diff 05-02-2019 05/02/19 CBC; WBC 7.7, HGC 15.6, HCT, 47.5, PLT 229 Had CTA chest 04/27/19: large acute occlusive, saddle type PE noted in bilateral PA, with RV strain. Had LE Doppler 04/26/19: acute DVT right leg involving right popliteal vein, old DVT right calf veins. Had ECHO 04/27/19: normal LV size and thickness, low normal LV systolic function with LVEF 45-50%, D shaped septum consistent with RV pressure overload, IVC RV dilated with mild to moderate RV dysfunction (in setting of acute PE and DVT). Fausto Selby [facility], [place] - [facility] 05/10/2019 18:01:59
--- OUTSIDE RECORDS SUMMARY | 2025-03-21 23:08 | XMS_ITS | Continuity of Care Document ---
Author Name Serena Richardson Address [address] [place] [address] Organization Unknown Address [address] [place] [address] Medications No known medications Problems No known problems
--- OUTSIDE RECORDS SUMMARY | 2025-03-21 23:09 | XMS_ITS | Continuity of Care Document ---
Author Name Serena Richardson Address [address] [place] [address] Organization Unknown Address [address] [place] [address] Medications No known medications Problems No known problems
--- OUTSIDE RECORDS SUMMARY | 2025-03-21 23:09 | XMS_ITS | Clinical Summary ---
Author Organization [facility] Address [address] [place] [address] Care Team Providers Care Vamp Maker Name Role Phone Maegan Charles Primary Care Provider [phone] Ryan Dyer MD Unavailable [phone] Chika Umana MD Unavailable [phone] Allergies Active Allergy Reactions Criticality Noted Date Comments Heparin HIT High 06/05/2022 Penicillins Anaphylaxis High 05/27/2022 Penicillins Anaphylaxis,Rash High 04/26/2019 Rash Rivaroxaban Diarrhea Low 12/03/2023 Medications hydroCHLOROthia zide 12.5 mg tablet TAKE 1 TABLET BY MOUTH EVERY DAY IN THE MORNING FOR HIGH BLOOD PRESSURE 10/21/2023 Active Ozempic 0.25 mg or 0.5 mg (2 mg/3 mL) pen injector injection INJECT 0.25 MG UNDER THE SKIN ONCE WEEKLY 11/13/2023 Active rivaroxaban (XARELTO) 20 mg tabletIndicatio ns:Personal history of pulmonary embolism,Person al history of venous thrombosis and embolism Take 1 tablet (20 mg total) by mouth daily with dinner 90 tablet 3 05/15/2024 Active Active Problems Problem Noted Date Diagnosed Date Screening for colon cancer 12/07/2024 Acute pulmonary embolism wit h acute cor pulmonale, unspecified pulmonary embolism type 07/01/2023 Assessment & Plan (07/03/2023 1:11 PM CDT): Unable to see OSH CT imaging. TTE poor quality but normal EF with elevated RH pressures but preserved right ventricular function LE dopplers show RLE DVT popliteal Feeling well without pain, dyspnea and hemodynamically stable not on O2 Recurrent 2/2 to medication non compliance somewhat due to poor health literacy Continue argatroban infusion today and transition back to xarelto. 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 Previously took metformin 1000 mg will resume at discharge Acute pulmonary embolism, un specified pulmonary embolism type, unspecified whether acute cor pulmonale present 05/27/2022 Body mass index (BMI) of 45.0-49.9 in adult 05/13 Congestive heart failure wit h left ventricular diastolic dysfunction 05/27/2022 Deep vein thrombosis (DVT) 05/27/2022 Deep vein thrombosis (DVT) w ith pulmonary embolism present on admission 05/27/2022 Elevated brain natriuretic peptide (BNP) level 0 05/27/2022 Exercise hypoxemia 05/27/2022 Obstructive sleep apnea syndrome 05/27/2022 Assessment & Plan (07/02/2023 12:30 PM CDT): Non compliant with CPAP Pain in shoulder region 05/27/2022 Uncontrolled stage 2 hypertension 05/27/2022 Venous stasis ulcer of right lower leg with edema of right lower leg 05/13/2022 Edema of lower extremity 08/24/2021 Chronic peripheral venous hypertension 2 Immunizations Immunization Administration Dates Next Due Hep A, Adult 09/09/2000 Pfizer SARS-CoV-2 Monovalent Vaccination (12+ Yrs) PURPLE 10/25/2020 Tdap 07/23/2020 Social History Tobacco Use Types Packs/Day Years Used Date Smoking Tobacco: Never Passive Smoke Exposure: Never Smokeless Tobacco: Never Tobacco Cessation:Counseling Given: Not Answered [facility] Utilities Answer Date Recorded In the past 12 months has th e electric, gas, oil, or water company threatened to shut off services in your home? No 07/02/2023 Overall Financial Resource Strain (CARDIA) Answe r Date Recorded How hard is it for you to pa y for the very basics like food, housing, medical care, and heating? Not hard at all 07/02/2023 Hunger Vital Sign Answer Date Recorded Within the past 12 months, y ou worried that your food would run out before you got the money to buy more. Never true 07/02/19 24 Within the past 12 months, t he food you bought just didn't last and you didn't have money to get more. Never true 07/02/2023 PRAPARE - Transportation Answer Date Re corded In the past 12 months, has l ack of transportation kept you from medical appointments or from getting medications? No 06/11 In the past 12 months, has l ack of transportation kept you from meetings, work, or from getting things needed for daily living? No 07/02/2023 Housing Stability Vital Sign Answer Demetrio e Recorded In the last 12 months, was t here a time when you were not able to pay the mortgage or rent on time? No 07/02/2023 In the last 12 months, how many places have you lived? 2 07/02/2023 In the last 12 months, was t here a time when you did not have a steady place to sleep or slept in a alf (including now)? No 07/02/2023 Personal Safety Answer Date Recorded Have you ever been in or are you currently in a harmful physical or emotional relationship or is someone making you feel afraid or unsafe? Denies 07/02/2023 Sex and Gender Information Value Date Recorded Sex Assigned at Not on file Legal Sex Male 6:39 PM OIL DRILLER Gender Identity Male 06/15/2022 9:18 AM OIL DRILLER Sexual Orientation Not on file Last Filed Vital Signs Vital Sign Reading Time Taken Comments Blood Pressure 129/83 05/15/2024 10:33 AM OIL DRILLER Pulse 104 05/15/2024 10:33 AM OIL DRILLER Temperature 36.4 C (97.5 F) 05/15/2024 10:33 AM OIL DRILLER Respiratory Rate 18 05/15/2024 10:33 AM OIL DRILLER Oxygen Saturation 93% 05/15/2024 10:33 AM OIL DRILLER Inhaled Oxygen Concentration - - Weight 176.9 kg (390 lb) 05/15/2024 10:33 AM OIL DRILLER Height 185.4 cm (6' 1) 05/15/2024 10:33 AM OIL DRILLER Body Mass Index 51.45 05/15/2024 10:33 AM OIL DRILLER Plan of Treatment Upcoming Encounters Date Type Department Care Team (Late st Contact Info) Description 06/13/2025 11:00 AM OIL DRILLER Hospital Encounter [address] [address] Roman Randolph DO [address] [facility] [place] [address] 06/13/2025 11:00 AM OIL DRILLER - 06/13/2025 11:30 AM OIL DRILLER Surgery [address] [address] Roman Randolph DO [address] [facility] [place] [address] COLONOSCOPY Scheduled Procedures Name Priority Associated Diagnoses Date/Ti me COLONOSCOPY Screening for colon cancer 06/13/2025 11:00 AM OIL DRILLER Health Maintenance Due Date Last Done Comments Albumin Creatinine Ratio, Urine 1968 Colon Cancer Screening-Colonoscopy 1968 Depression Screening 1968 Dilated Eye Exam 1968 Foot Exam 1968 Hepatitis B Screening 1986 Regular Well Visit/Exam 18-64 1986 Pneumococcal vaccine <65 (1 of 2 - PCV) 1987 Zoster Vaccine (1 of 2) 2018 Prostate Cancer Screening-PSA 04/26/2021 04/26/2019 Hemoglobin A1C 01/02/2024 07/02/2023, 05/28/2022 Lipid Panel 07/01/2024 07/02/2023, 05/28/2022 Covid-19 Vaccine (2 - 2024-2 6 season) 2024 10/25/2020 Influenza Vaccine (#1) 2024 eGFR 05/15/2025 05/15/2024, 082 06/2023, 08/20/2023, Additional history exists DTaP/Tdap/Td Vaccine (2 - Td or Tdap) 07/23/2030 07/23/2020 Hepatitis C Screening Completed 05/27/2022 Procedures Procedure Name Priority Date/Time Associated Diagnosis Comments EGFR Routine 05/15/2024 10:22 AM OIL DRILLER Acute pulmonary embolism, unspecified pulmonary embolism type, unspecified whether acute cor pulmonale present (HCC) Deep vein thrombosis (DVT) of non-extremity vein, unspecified chronicity HEMOGLOBIN A1C Routine 07/02/2023 3:32 AM CDT LIPID PANEL Routine 07/02/2023 3:32 AM CDT PSA SCREEN Routine 04/26/2019 1:55 PM OIL DRILLER from Last 3 Months or Most Recently Relevant to Health Maintenance Results * eGFR (05/15/2024 10:22 AM OIL DRILLER) eGFR 90 >=60 mL/min/1. 73 m2 Comment: Interpretive Data Reference Interval Normal >/= 90 mL/min/1.73m2 Mildly decreased* 60 - 89 mL/min/1.73m2 Mildly to moderately decreased 45 - 59 mL/min/1.73m2 Moderately to severely decreased 30 - 44 mL/min/1.73m2 Severely decreased 15 - 29 mL/min/1.73m2 Kidney Failure < 15 mL/min/1.73m2 *Relative to young adult level Estimated glomerular filtration rate is determined by the 2020 CKD-EPI equation recommended by the National Kidney Foundation (A Unifying Approach to GFR Estimation: Recommendations of the NKF-ASK Task Force on Reassessing the Inclusion of Race in Diagnosing Kidney Disease, JASN 2020). The CKD-EPI equation should not be used for patients with unstable renal function and has not been validated in children and those over 70. Current interpretive data was last reviewed 2021. Blood 05/15/2024 10:2 2 AM OIL DRILLER 05/15/2024 10:39 AM OIL DRILLER Belem Swathi Isaías ORDNANCE HANDLER LAB BLOOD ORDERABLES Final Result Performing Organization Address [facility] Co de Phone Number POLA EDWARD [facility] [place] [address] * (ABNORMAL) Hemoglobin A1c (07/02/2023 3:32 AM CDT) Hgb A1C 7.2(H) 4.0 - 5.6 % Estimated Average Glucose 160 mg/dL [facility] Comment: The ADA recommends reporting an estimated Average Glucose (eAG) with all Hemoglobin A1c results using the equation derived from a study of 507 normal and diabetic adults. Minority populations were underrepresented and children were not included. (Diabetes Care 31:5478-5397, 2008). The eAG is not equivalent to a fasting glucose. Blood 07/02/2023 3:32 AM CDT 07/02/2023 12:54 PM CDT Jaden Urias DO LAB BLOOD ORDERABLES Final Result Performing Organization Address [facility] Co de Phone Number [facility] [address] Department [place] [address] * (ABNORMAL) Lipid panel (07/02/2023 3:32 AM CDT) Pathologist [facility] Cholesterol 123 30 - 199 mg/dL Comment: Interpretive Data Ages < or = 19 years Acceptable: <170 mg/dL Borderline high: 170-199 mg/dL High: >or= 200 mg/dL Ages > or = 20 years Desirable: <200 mg/dL Borderline high: 200-239 mg/dL High: >or= 240 mg/dL Literature References: 1. Expert Panel on Integrated Guidelines for Cardiovascular Health and Risk Reduction in Children and Adolescents. Pediatrics 2011;128:S213 2. NCEP Expert Panel. Circulation 2004;110:227 Current Interpretive Data was last revised on 2017. Triglycerides 141 <=149 mg/dL [facility] Comment: Interpretive Data Ages < or = 9 years Acceptable: <75 mg/dL Borderline high: 75-99 mg/dL High: >or= 100 mg/dL Ages 10 to 20 years Acceptable: <90 mg/dL Borderline high: 90-129 mg/dL High: >or= 130 mg/dL Ages > or = 20 years Desirable: <150 mg/dL Borderline high: 150-199 mg/dL High: 200-499 mg/dL Very high: >or= 499 mg/dL Literature References: 1. Expert Panel on Integrated Guidelines for Cardiovascular Health and Risk Reduction in Children and Adolescents. Pediatrics 2011;128:S213 2. NCEP Expert Panel. Circulation 2004;110:227 Current Interpretive Data was last revised on 2017. HDL 33(L) >=40 mg/dL [facility] Comment: Interpretive Data Ages < or = 19 years Acceptable: >45 mg/dL Borderline low: 40-45 mg/dL Low: <40 mg/dL Ages > or = 20 years Desirable: >or= 60 mg/dL Low: <40 mg/dL Literature References: 1. Expert Panel on Integrated Guidelines for Cardiovascular Health and Risk Reduction in Children and Adolescents. Pediatrics 2011;128:S213 2. NCEP Expert Panel. Circulation 2004;110:227 Current Interpretive Data was last revised on 2017. LDL, calculated 62 <=129 mg/dL [facility] Comment: Interpretive Data Ages < or = 19 years Acceptable: <110 mg/dL Borderline high: 110-129 mg/dL High: >or= 130 mg/dL Ages > or = 20 years Optimal: <100 mg/dL Near optimal: 100-129 mg/dL Borderline high: 130-159 mg/dL High: >160 mg/dL Literature References: 1. Expert Panel on Integrated Guidelines for Cardiovascular Health and Risk Reduction in Children and Adolescents. Pediatrics 2011;128:S213 2. NCEP Expert Panel. Circulation 2004;110:227 Current Interpretive Data was last revised on 2017. Non-HDL Cholesterol 90 mg/dL [facility] Comment: Interpretive Data Ages < or = 19 years Acceptable: <120 mg/dL Borderline high: 120-144 mg/dL High: >145 mg/dL Ages > or = 20 years When triglycerides are >200 mg/dL, Non-HDL cholesterol is a secondary target of therapy with treatment goals that are 30 mg/dL greater than the LDL cholesterol target. Literature References: 1. Expert Panel on Integrated Guidelines for Cardiovascular Health and Risk Reduction in Children and Adolescents. Pediatrics 2011;128:S213 2. NCEP Expert Panel. Circulation 2004;110:227 Current Interpretive Data was last revised on 2017. Chol/HDL ratio 4 [facility] Blood 07/02/2023 3:32 AM CDT 07/02/2023 3:39 AM CDT us Dagoberto Coffey MD LAB BLOOD ORDERABLES Final Re sult [facility] [address] [place] [address] * PSA screen (04/26/2019 1:55 PM OIL DRILLER) PSA Screen 0.2 0.0 - 3.9 ng/mL [facility] Comment: Method: ECLIA Values obtained by different assay methods cannot be used interchangeably. Use sequential testing to confirm baseline if assay method changed during patient monitoring. 04/26/2019 1:55 PM OIL DRILLER 04/26/2019 2:16 PM OIL DRILLER Narrative Resulting Agency Comment IN us Pastora Carr NP LAB BLOOD ORDERABLES Final Result [facility] [address] [place], [place] [id number] [place] [address] from Last 3 Months or Most Recently Relevant to Health Maintenance Insurance [facility] Advance Directives For more information, please contact: [phone] * Full Code (Latest Code Status on File) Date Activated Date Inactivated Comments 07/01/2023 7:38 PM 07/05/2023 1:13 AM * Full Code Date Activated Date Inactivated Comments 05/27/2022 11:50 AM 06/11/2022 7:32 PM Care Teams Vamp Maker Relationship Specialty Start Date End Date Maegan Charles PA [facility] [place] [address] PCP - General Physician Roll Machine Operator 05/28/22 Ryan Dyer MD [address] [place] [address] 05/28/22 Chika Umana MD [address] [place] [address] Medical Oncologist/Travel Services Professional Hematology 07/04/23
--- NOTE | 2025-03-22 00:13 | ECG_ITS ---
Test Date: 2025-03-22 01:14:29 Measurements Intervals [place] Rate: 59 P: 26 AK: 166 QRS: 30 QRSD: 86 T: 9 QT: 414 QTc: 411 Interpretive Statements SINUS BRADYCARDIA LOW QRS VOLTAGE IN PRECORDIAL LEADS BORDERLINE ECG No previous ECG available for comparison Electronically Signed On 03-22-2025 06:14:28 VISITOR SERVICES ASSISTANT by Juan Luis Barger D.O.
--- NOTE | 2025-03-22 00:59 | ED_ITS ---
HPI - General Adult General Chief complaint: Dizziness Stated complaint: Dizzy/nausea Time Seen by Provider: 03/22/25 00:42 Source: patient Mode of arrival: EMS Limitations: no limitations History of Present Illness HPI narrative: Patient is a 54-year-old male presents to the emergency department complaining of dizziness and nausea. Patient notes that he was at a gas station and [place] that he thinks had marijuana in it, denies ever using marijuana before. Notes that he had an episode of dizziness and nausea vomiting, both have since resolved. Notes that he currently feels lightheaded like his body is floating and hungry and wants two turkey sandwiches. Denies any alcohol use. Denies any chest pain or difficulty breathing. Denies any focal weakness or numbness. Denies any known fevers. Denies any recent illness or recent injuries. Related Data Allergies Allergy/AdvReac Type Severity Reaction Status Date / Time Penicillins Allergy Severe Anaphylaxis Verified 11/01/20 16:48 Review of Systems 2 Review of Systems: A 10 system review of systems was completed on the patient and is negative except for what is stated in the HPI. Nursing and ancillary documentation was reviewed. Exam 2 Narrative: CONST: No acute distress. Obese. HENMT: Head is normocephalic and atraumatic. Tacky mucous membranes. No posterior oropharynx erythema. EYES: No scleral icterus. No conjunctival injection or pallor. PERRL. Extraocular motions intact. No nystagmus. NECK: No meningeal signs. RESP: Able to speak in full sentences. Normal respiratory effort. CTAB. CARDIO: Regular rate. Regular rhythm. 2+ DP and radial pulses bilaterally. GI: Nondistended. No tenderness to palpation. Soft. : No CVA tenderness to palpation. SKIN: No rashes or lesions noted on exposed skin. NEURO: Oriented x3. Moves all extremities. No focal neurological deficits. EXTREM/MSK/BACK: No pedal edema. PSYCH: Normal affect. Course Vital Signs Vital signs: Vital Signs Temperature 98.3 F 03/21/25 23:08 Pulse Rate 62 03/21/25 23:08 Respiratory Rate 18 03/21/25 23:08 Blood Pressure 144/78 H 03/21/25 23:08 Pulse Oximetry 99 03/21/25 23:08 Oxygen Delivery Room Air 03/21/25 23:08 Temperature 98.3 F 03/21/25 23:08 Pulse Rate 62 03/21/25 23:08 Respiratory Rate 18 03/21/25 23:08 Blood Pressure 144/78 H 03/21/25 23:08 Pulse Oximetry 99 03/21/25 23:08 Oxygen Delivery Room Air 03/21/25 23:08 [facility] Narrative Medical decision making narrative: Patient presents with the above complaint. Initial vitals are remarkable for no significant abnormalities. Physical examination as noted above. Plan discussed: laboratory analysis, EKG. Patient ordered IVF, antiemetic, continuous cardiac monitoring, continuous pulse oximetry. Patient provided with food. Patient was reassessed at the bedside. No changes in physical exam. Patient is in no acute distress. Patient tolerating oral intake. Patient ambulating without difficulty. The patient has remained stable throughout the entire ED visit. Counseled patient regarding diagnostic results and potential diagnosis. Anticipatory guidance provided. Patient instructed to follow up with PCP within 1 week. Patient counseled on: false reassurance from an emergency department evaluation; no current evidence of a medical emergency; return immediately for any new, recurrent, worsening, concerning, or refractory symptoms. Additional verbal and printed discharge instructions were given and discussed with the patient. Patient verbally acknowledges understanding of condition and discharge instructions. All questions were answered to the patient's satisfaction. Patient is in agreement with the plan of care. The patient is stable for discharge and was discharged without incident. Differential Diagnosis Differential Diagnosis: Metabolic derangement, electrolyte derangement, dysrhythmia, substance abuse, dehydration. Lab Data [facility] Lab Attestation statement: I personally reviewed the patient's lab results. Lab results narrative: CBC reveals a hemoglobin of 13.5. Comprehensive metabolic panel reveals a sodium 135, glucose 166. Lipase 67. Magnesium is 2.0. 03/22/25 01:13 03/22/25 01:13 Labs: Lab Results 03/22/25 Range/Units 01:13 WBC 8.5 (4.5-10.0) K/mm3 RBC 4.62 (4.6-6.20) M/mm3 Hgb 13.5 L (14.0-18.0) g/dL Hct 40.8 L (42.0-52.0) % MCV 88.3 (80-100) fl MCH 29.2 (26-34) pg MCHC 33.1 (32-36) g/dl RDW 14.2 (11.5-14.5) % Plt Count 257 D (150-375) k/mm3 MPV 11.0 H (7.4-10.4) fl Immature Gran % (Auto) 0.4 (0-0.5) % Neut % (Auto) 80.8 H (45.5-73.1) % Lymph % (Auto) 11.9 L (18.3-44.2) % [place] % (Auto) 5.2 (2.6-8.5) % Eos % (Auto) 1.5 (0-4.4) % Baso % (Auto) 0.2 (0.2-1.2) % Lymph # (Auto) 1.02 (0.9-3.2) K/mm3 [place] # (Auto) 0.4 (0.1-0.6) K/mm3 Eos # (Auto) 0.1 (0-0.3) K/mm3 Baso # (Auto) 0.0 (0.0-0.1) K/mm3 Abs Immat Gran (auto) 0.03 (0.00-0.031) K/mm3 Absolute Neuts (auto) 6.9 H (1.3-6.7) K/mm3 Absolute Nucleated RBC 0.000 (0.0-0.012) K/mm3 Nucleated RBC % 0.0 (0.0-0.2) % Sodium 135 L (137-145) mmol/L Potassium 4.5 (3.4-5.0) mmol/L Chloride 102 (98-107) mmol/L Carbon Dioxide 28 (22-30) mmol/L Anion Gap 5 (4-12) mmol/L BUN 12 D (9-20) mg/dL Creatinine 0.94 (0.7-1.3) mg/dL Estim Creat Clear Calc 111 ml/min Estimated GFR > 60 (59 - ) Glucose 166 H (65-110) mg/dL Calcium 8.9 (8.4-10.2) mg/dL Magnesium 2.0 (1.6-2.3) mg/dL Total Bilirubin 0.4 (0.2-1.3) mg/dL AST 26 (17-59) U/L ALT 21 (6-50) U/L Alkaline Phosphatase 94 (38-126) U/L Total Protein 8.0 (6.3-8.2) g/dL Albumin 4.0 (3.5-5.1) g/dL Lipase 67 (23-300) U/L ECG Data EKG #1: Attestation: I personally reviewed and interpreted this ECG as follows: ECG completion date: 03/22/25 ECG completion time: 01:14 Interpretation: Rate of 59, rhythm is sinus bradycardia, axis is normal, no ST elevations or depressions, nonspecific T-wave inversion in lead 3. Discharge Plan Discharge Clinical Impression: Nausea, Accidental drug ingestion Patient Disposition: Home Condition: Stable Instructions: Antibiotic Form Additional Instructions: Follow-up with your primary care physician in the next 1 week as needed, return immediately to the emergency department for any new or concerning symptoms especially any emergent concerns for life, limb, eyesight. Patient Language: Italian Prescriptions: No Action (DME) compr.stocking,knee,long,x-lrg Misc See Rx Instructions .Route Qty: 2 0RF Rx Instructions: As directed azithromycin [Zithromax Z-Breezy] 250 mg tablet See Rx Instructions .ROUTE .COMPLEX Qty: 6 0RF Rx Instructions: take 500 mg today (day 1), then 250 mg for 4 days (days 2-5) furosemide [Lasix] 40 mg tablet 40 mg PO DAILY Qty: 30 0RF furosemide 40 mg tablet 40 mg PO DAILY Qty: 30 0RF Follow-up/Referrals: Araceli,ОЛЕГ Issa [Primary Care Provider, Unknown] - 1 Week Time of Disposition: 01:43
--- OUTSIDE RECORDS SUMMARY | 2025-03-22 00:59 | XMS_ITS | Data Portability ---
Author Organization [place] [facility] [place] [email or web address] [facility], Main Office Address [address] [place] [id number] Care Team Providers Care Flame Cutter Name Role Phone ELIF SPEARS Primary Care Provider [phone] Assessment Encounter Date Assessment Date Assessment LastModified by Organization Details LastModified Time 11/22/2024 11/22/2024 This note is dictated and transcribed by [employer]. Information Specialist variances may occur. Despite proofreading, typographical errors may occur. Occasional wrong-word or 'bfqau-r-fllq' substitutions may have occurred due to the inherent limitations of voice recording. Read the chart carefully and recognize, using context, where substitutions have occurred. Not available 11/22/2024 13:19:31 11/29/2024 11/29/2024 This note is dictated and transcribed by [employer]. Information Specialist variances may occur. Despite proofreading, typographical errors may occur. Occasional wrong-word or 'wdhqn-t-maig' substitutions may have occurred due to the inherent limitations of voice recording. Read the chart carefully and recognize, using context, where substitutions have occurred. Not available 11/29/2024 16:32:13 12/06/2024 12/06/2024 This note is dictated and transcribed by [employer]. Information Specialist variances may occur. Despite proofreading, typographical errors may occur. Occasional wrong-word or 'fjqvc-p-ptka' substitutions may have occurred due to the inherent limitations of voice recording. Read the chart carefully and recognize, using context, where substitutions have occurred. Not available 12/06/2024 12:36:07 12/13/2024 12/13/2024 This note is dictated and transcribed by [employer]. Information Specialist variances may occur. Despite proofreading, typographical errors may occur. Occasional wrong-word or 'wcbra-b-pnzl' substitutions may have occurred due to the inherent limitations of voice recording. Read the chart carefully and recognize, using context, where substitutions have occurred. Not available 12/13/2024 15:36:54 12/20/2024 12/20/2024 This note is dictated and transcribed by [employer]. Information Specialist variances may occur. Despite proofreading, typographical errors may occur. Occasional wrong-word or 'xqomd-h-kokr' substitutions may have occurred due to the inherent limitations of voice recording. Read the chart carefully and recognize, using context, where substitutions have occurred. Not available 12/20/2024 11:17:32 Plan of Treatment Reminders Order Date Submit Date Provider Last Modified By Organization Details Last Modified Time Details Appointments None record ed. Lab None record ed. Referral None record ed. Procedures None record ed. Surgeries None record ed. Imaging None record ed. Medication Orders None record ed. Patient TargetsNo targets recorded. Patient InstructionsNo instructions recorded. Reason for Referral None Reported. Results Created Date Observation Date Name Description Value Unit Range Abnormal Flag Note LastModifiedBy Organization Detail LastModifiedTime 11/10/19 25 11/09/2024 CULTU RE WOUND /TISS UE+GR .STAI N wndtssc ===== ===== ===== ===== ===== ===== ===== ===== ===== ===== ===== ===== ===== ===== ===== ===== ===== ===== ===== ===== ===== ===== ===== ===== Speci men NO.: [id number] Exam Statu s: Final Proce dure: CULTU RE WOUND /TISS UE+GR .STAI N ===== ===== ===== ===== ===== ===== ===== ===== ===== ===== ===== ===== ===== ===== ===== ===== ===== ===== ===== ===== ===== ===== ===== ===== Iso/R esult : 01 Prote us mirab ilis Antim icrob ic/Do se SHANTEL Syste shantel Urine __ ___ ___ Ampic illin >16 R Aztre onam <=4 S Cefot axime <=2 Cipro floxa chantal >2 R Genta micin <=2 [place] [address]68 Oxida se React ion N Extra Sensi tive Be NEG Amp/S ulbac power >16/8 R Ceftr iaxon e <=1 S Cefta zidim e <=1 S Cefaz merline 16 R Cefep jeevan <=2 S Cefur oxime <=4 S Levof loxac in >4 R Merop enem <=1 S Pip/T azo <=8 S Trime th/Roberts lfa >2/38 R Tetra cycli ne >8 R Tobra mycin <=2 S Not Available [facility] ([facility]) [address] [place] [address], [address], 11/12/2024 07:29:30 11/23/19 25 11/22/2024 CULTU RE WOUND /TISS UE+GR .STAI N wndtssc ===== ===== ===== ===== ===== ===== ===== ===== ===== ===== ===== ===== ===== ===== ===== ===== ===== ===== ===== ===== ===== ===== ===== ===== Speci men NO.: [id number] Exam Statu s: Final Proce dure: CULTU RE WOUND /TISS UE+GR .STAI N ===== ===== ===== ===== ===== ===== ===== ===== ===== ===== ===== ===== ===== ===== ===== ===== ===== ===== ===== ===== ===== ===== ===== ===== Iso/R esult : 01 Pseud omona s aerug inosa Iso/R esult : 02 Provi denci a stuar tii Antim icrob ic/Do se SHANTEL Syste shantel Urine Antim icrob ic/Do se SHANTEL Syste shantel Urine __ ___ ___ __ ___ ___ Aztre onam <=4 S Ampic illin >16 R Cipro floxa chantal 1 I Aztre [place]am <=4 [place] [address] 46174 Cefot axime <=2 Oxida se React ion P Cipro floxa chantal <=0.2 5 S Cefta zidim e 4 S Genta micin <=2 R* Cefep jeevan <=2 [place] [address] 28294 Levof loxac in 1 S Oxida se React ion N Merop enem <=1 S Amp/S ulbac power >16/8 R Pip/T azo <=8 S Ceftr iaxon e <=1 S Tobra mycin <=2 S Cefaz merline >16 R Cefta zidim e/Wolf sandoval <=8 S Cefep jeevan <=2 S Cefur oxime >1 6 R Levof loxac in <=0.5 S Merop enem <=1 S Pip/T azo <=8 S Trime th/Roberts lfa <=2/3 8 S Tetra cycli ne >8 R Tobra mycin 8 R* Not Available [facility] (Lab) [address], [place], [address], 11/25/2024 07:32:24 Result Notes None recorded. Problems Name Problem SNOMED Code Status Onset Date Resolution Date Notes Provider Name and Address Organization Details Recorded Time Chronic peripheral venous hypertensi on 446326647 Active 2021 Not Available [facility] 3 00:59:42 Edema of lower extremity 067167122 Active 2021 Not Available [facility] 3 00:59:42 Venous stasis ulcer with edema of left lower leg 3789375371384 9101 Active 2022 Not Available [facility] 3 00:59:42 Venous stasis ulcer with edema of right lower leg 3622678181712 9106 Active 2022 Not Available [facility] 3 00:59:42 Peripheral venous insufficie ncy 03401097 Active 2024 Grady Harden DPM [address], [address] , [employer] 5 14:16:54 Morbid obesity 337365270 Active 2024 Grady Harden DPM [address] [address], [place], [address] , [employer] 5 14:17:39 History of deep vein thrombosis 844632387 Active 2024 Grady Harden DPM [address] [address], [place], [address] , [facility] 5 14:18:43 Problem Notes None recorded. Procedures Surgical History Date Name Laterality Status Provider Name and Address Organization Details Recorded Time 12/20/2024 Wound Care-Podiat ry completed Apolinar Ferrer RN [facility] [employer] 12/20/2024 11:24:12 12/13/2024 Wound Care-Podiat ry completed Apolinar Ferrer RN [facility] [employer] 12/13/2024 15:47:16 12/06/2024 Wound Care-Podiat ry completed Claudia Yeh RN [facility] [employer] [facility] 12/06/2024 12:41:27 11/29/2024 Wound Care-Podiat ry completed Claudia Yeh RN [facility] [employer] [facility] 11/29/2024 12:39:23 11/22/2024 Wound Care-Podiat ry completed Grady Harden DPM [address], [place], [address], [facility] [employer] [facility] 11/22/2024 13:18:53 11/09/2024 Wound Care-Podiat ry completed Claudia Yeh RN [facility] [employer] [facility] 11/09/2024 16:38:44 11/01/2024 Wound Care-Podiat ry completed Claudia Yeh RN [facility] [employer] [facility] 11/01/2024 10:04:59 10/11/2024 Wound Care-Podiat ry completed Apolinar Ferrer RN [facility] [employer] [facility] 10/11/2024 14:29:05 10/04/2024 Wound Care-Podiat ry completed Apolinar Ferrer RN [facility] [employer] [facility] 10/04/2024 10:48:08 09/27/2024 Wound Care-Podiat ry completed Grayd Harden DPM [address], [place], [address], [facility] [employer] [facility] 09/27/2024 11:57:02 09/20/2024 Wound Care-Podiat ry completed Claudia Yeh RN [facility] [employer] [facility] 09/20/2024 12:26:15 09/13/2024 Wound Care-Podiat ry completed Grady Harden DPM [address], [place], [address], [facility] [employer] [facility] 09/13/2024 11:47:00 09/06/2024 Wound Care-Podiat ry completed Claudia Yeh RN [facility] [employer] [facility] 09/06/2024 10:54:02 08/30/2024 Wound Care-Podiat ry completed Claudia Yeh RN [facility] [employer] 08/30/2024 14:24:40 08/23/2024 Wound Care-Podiat ry completed Grady Harden DPM [address], [place], [address], [employer] 08/29/2024 08:52:58 08/16/2024 Wound Care-Podiat ry completed Grady Harden DPM [address], [place], [address], [employer] 08/16/2024 15:59:42 08/09/2024 Wound Care-Podiat ry completed Grady Harden DPM [address], [place], [address], [employer] 08/09/2024 13:14:05 08/02/2024 Wound Care-Podiat ry completed Grady Harden DPM [address], [place], [address], [employer] 08/02/2024 14:09:54 Imaging Results None recorded. Procedure Notes None recorded. Medical Equipment None Reported. Allergies Allergen ID Allergen Name Allergen Category Reaction Reaction Severity Criticality Documentation Date Start Date Code Code System Note Provider Name and Address Organization Details Recorded Time 91021 Product containin g penicilli n (product) medicatio n anaphylax is severe Not available 06/11/2022 03915 8001 SNOMED Not Available [facility] 3 01:01:18 01290 ampicilli n medicatio n anaphylax is severe Not available 06/11/2022 733 RxNorm Not Available [facility] 3 01:01:18 Medications Name Sig Start Date Stop Date Status Note LastModified by Organization Details LastModified Time cyclobenzap rine 10 mg tablet TAKE 1 TABLET BY MOUTH THREE TIMES DAILY active Not Available Not Available No t Available furosemide 40 mg tablet TAKE 1 TABLET BY MOUTH EVERY DAY AT NOON 08/02 completed Not Available Not Available Not Available atorvastati n 40 mg tablet TAKE 1 TABLET BY MOUTH EVERY DAY AT BEDTIME active Not Available Not Available No t Available metformin 500 mg tablet TAKE 1 TABLET BY MOUTH EVERY DAY WITH FOOD FOR 1 WEEK. INCREASE TO 1 TABLET 2 TIMES A DAY WITH FOOD FOR 30 DAYS 08/02 completed Not Available Not Available Not Available azithromyci n 250 mg tablet 07/01 completed Not Available Not Available Not Available olanzapine 5 mg tablet active Not Available Not Available Not Available sulfamethox azole 800 mg-trimetho prim 160 mg tablet TAKE 1 TABLET BY MOUTH TWICE DAILY 07/01 completed Not Available Not Available Not Available metformin 1,000 mg tablet TAKE 1 TABLET BY MOUTH TWICE DAILY WITH MEALS 08/02 completed Not Available Not Available Not Available doxycycline hyclate 100 mg tablet Take 1 tablet twice a day by oral route as directed for 10 days. 08/02 completed Not Available Not Available Not Available gentamicin 0.1 % topical ointment APPLY TO LEFT LEG WOUND THREE TIMES DAILY active Not Available Not Available No t Available hydrochloro thiazide 12.5 mg tablet TAKE 1 TABLET BY MOUTH EVERY DAY IN THE MORNING FOR HIGH BLOOD PRESSURE active Not Available Not Available No t Available Xarelto 20 mg tablet TAKE 1 TABLET BY MOUTH EVERY DAY WITH DINNER active Not Available Not Available No t Available Trulicity 1.5 mg/0.5 mL subcutaneou s pen injector ADMINISTE R 1.5 MG UNDER THE SKIN EVERY WEEK DIRECTED FOR DIABETES 08/02 completed Not Available Not Available Not Available Ozempic 1 mg/dose (4 mg/3 mL) subcutaneou s pen injector INJECT 1 MG UNDER THE SKIN ONCE WEEKLY 08/02 completed Not Available Not Available Not Available Ozempic 0.25 mg or 0.5 mg (2 mg/3 mL) subcutaneou s pen injector INJECT 0.5 MG EVERY WEEK BY SUBQ ROUTE DIRECTED FOR 30 DAYS 08/02 completed Not Available Not Available Not Available Vitals Date Recorded Body height Heart rate Respiratory rate Body temperature Oxygen saturation Systolic And Diastolic Provider Name and Address Organization Details Last Updated DateTime 182.88 cm 74 /min 22 /min 97.9 [degF] 99 % 147/90 mm[Hg] Claudia Yeh RN [place] [facility] [place] [employer] 5 12:30:55 Date Recorded Body height Body temperature Respiratory rate Heart rate Oxygen saturation Systolic And Diastolic Provider Name and Address Organization Details Last Updated DateTime 5 182.88 cm 97.9 [degF] 20 /min 71 /min 98 % 131/69 mm[Hg] Claudia Yeh RN [facility] [email or web address] [facility] 5 12:37:34 Date Recorded Body height Body temperature Respiratory rate Heart rate Oxygen saturation Systolic And Diastolic Provider Name and Address Organization Details Last Updated DateTime 5 182.88 cm 97.7 [degF] 22 /min 82 /min 98 % 146/94 mm[Hg] Claudia Yeh RN [facility] [email or web address] [facility] 5 12:37:25 Date Recorded Body height Body temperature Heart rate Oxygen saturation Respiratory rate Provider Name and Address Organization Details Last Updated DateTime 182.88 cm 97.5 [degF] 60 /min 97 % 18 /min Apolinar Ferrer RN [facility] [email or web address] [facility] 15:38:45 Date Recorded Body height Body temperature Oxygen saturation Heart rate Systolic And Diastolic Provider Name and Address Organization Details Last Updated DateTime 182.88 cm 97.6 [degF] 98 % 54 /min 131/80 mm[Hg] Apolinar Ferrer RN [facility] [email or web address] [facility] 11:17:51 Social History None recorded. Functional Status None recorded. Mental Status None recorded. Family History Nothing Reported. Medical History Condition Response BLOOD CLOTS Y ANEURYSM Y Past Encounters Encounter ID Performer Location Encounter Start Date Encounter Closed Date Diagnosis/Indication Diagnosis SNOMED-CT Code Diagnosis ICD10 Code Diagnosis IMO Codes Diagnosis Note [id number] [facility] [address] [place] [address] 07/01/2021 00:00:00 07/01/2021 12:39:53 [id number] [facility] [address] [place] [address] 07/08/2021 00:00:00 07/08/2021 14:58:54 [id number] [facility] [address] [place] [address] 07/15/2021 00:00:00 07/16/2021 15:54:23 [id number] [facility] [address] [place] [address] 07/22/2021 00:00:00 07/24/2021 10:15:23 [id number] [facility] [address] [place] [address] 07/31/2021 00:00:00 07/31/2021 16:30:17 [id number] [facility] [address] [place] [address] 08/05/2021 00:00:00 08/05/2021 15:19:10 [id number] [facility] [address] [place] [address] 08/12/2021 00:00:00 08/12/2021 16:31:44 [id number] [facility] [address] [place] [address] 08/19/2021 00:00:00 08/24/2021 12:10:17 [id number] [facility] [address] [place] [address] 10/21/2021 00:00:00 10/21/2021 12:25:47 [id number] [facility] [address] [place] [address] 10/28/2021 00:00:00 10/28/2021 12:01:25 [id number] [facility] [address] [place] [address] 11/06/2021 00:00:00 11/06/2021 21:38:29 [id number] [facility] [address] [place] [address] 11/11/2021 00:00:00 11/12/2021 08:36:48 [id number] [facility] [address] [place] [address] 11/20/2021 00:00:00 11/24/2021 14:11:31 [id number] [facility] [address] [place] [address] 11/25/2021 00:00:00 11/25/2021 14:00:31 [id number] [facility] [address] [place] [address] 12/02/2021 00:00:00 12/03/2021 11:09:02 [id number] [facility] [address] [place] [address] 12/09/2021 00:00:00 12/09/2021 11:55:36 [id number] [facility] [address] [place] [address] 12/16/2021 00:00:00 12/17/2021 10:50:10 [id number] [facility] [address] [place] [address] 12/23/2021 00:00:00 12/23/2021 11:43:23 [id number] [facility] [address] [place] [address] 12/30/2021 00:00:00 01/03/2022 20:50:26 [id number] [facility] [address] [place] [address] 01/06/2022 00:00:00 01/07/2022 18:31:25 [id number] [facility] [address] [place] [address] 01/20/2022 00:00:00 01/22/2022 09:55:01 [id number] [facility] [address] [place] [address] 02/10/2022 00:00:00 02/10/2022 14:09:04 [id number] [facility] [address] [place] [address] 02/17/2022 00:00:00 02/17/2022 11:16:07 [id number] [facility] [address] [place] [address] 02/24/2022 00:00:00 02/24/2022 12:02:35 [id number] [facility] [address] [place] [address] 03/03/2022 00:00:00 03/03/2022 14:21:58 [id number] Grady Harden DPM [facility] [address] [place] [address] 05/13/2022 00:00:00 05/13/2022 12:34:02 [id number] Grady Harden DPM [facility] [address] [place] [address] 05/20/2022 00:00:00 05/20/2022 11:34:15 [id number] Grady Harden DPM [facility] [address] [place] [address] 08/02/2024 11:36:12 08/02/2024 14:38:58 Venous stasis ulcer with edema of left lower leg 2135441529 3443557 L97.929 cultures todaymulti layer compressio n dressing applied new line elevation of legs when at restpatien t instructed to obtain a shower cast sock to prevent dressings from getting wet if the dressings become wet they have to be removedFol low-up in 1 week Peripheral venous insufficiency 82704022 I87.2 bilateraln on-complia nt with compressio n Morbid obesity 079330658 E66.01 recommend weight loss follow-up with PCP History of deep vein thrombosis 660769670 Z86.718 currently on Xarelto- continue per vascular recommenda tionsnegat thom calf pain bilateral calves [id number] Grady Harden DPM [facility] [address] [address] 08/09/2024 10:12:06 08/09/2024 14:00:53 Venous stasis ulcer with edema of left lower leg 7201123168 3684763 L97.929 cultures- Reviewedmu ltilayer compressio n dressing applied new line elevation of legs when at restpatien t instructed to obtain a shower cast sock to prevent dressings from getting wet if the dressings become wet they have to be removedFol low-up in 1 week Peripheral venous insufficiency 99162135 I87.2 bilateraln on-complia nt with compressio n Morbid obesity 996044332 E66.01 recommend weight loss follow-up with PCP History of deep vein thrombosis 717407193 Z86.718 currently on Xarelto- continue per vascular recommenda tionsnegat thom calf pain bilateral calves [id number] Grady Harden DPM [facility] [address] [place] [address] 08/16/2024 14:12:28 08/17/2024 10:28:08 Venous stasis ulcer with edema of left lower leg 4084377197 0794003 L97.929 cultures- Reviewedmu ltilayer compressio n dressing applied new line elevation of legs when at restpatien t instructed to obtain a shower cast sock to prevent dressings from getting wet if the dressings become wet they have to be removedFol low-up in 1 week Peripheral venous insufficiency 96088927 I87.2 bilateraln on-complia nt with compressio n Morbid obesity 159789129 E66.01 recommend weight loss follow-up with PCP History of deep vein thrombosis 818817312 Z86.718 currently on Xarelto- continue per vascular recommenda tionsnegat thom calf pain bilateral calves [id number] Grady Harden DPM [facility] [address] [place] [address] 08/23/2024 14:47:44 08/30/2024 14:08:36 Venous stasis ulcer with edema of left lower leg 7927412461 7285536 L97.929 cultures- ReviewedPr ofore multilayer compressio n dressing appliedele vation of legs when at restpatien t instructed to obtain a shower cast sock to prevent dressings from getting wet if the dressings become wet they have to be removedFol low-up in 1 week Peripheral venous insufficiency 01545399 I87.2 bilateraln on-complia nt with compressio n Morbid obesity 551971306 E66.01 recommend weight loss follow-up with PCP [id number] [facility] [address] [address] 1 08/30/2024 14:00:08 08/30/2024 16:23:02 Venous stasis ulcer with edema of left lower leg 3185689618 4505446 L97.929 Profore multilayer compressio n dressing appliedele vation of legs when at restpatien t instructed to obtain a shower cast sock to prevent dressings from getting wet if the dressings become wet they have to be removedFol low-up in 1 week Peripheral venous insufficiency I87.2 bilateraln on-complia nt with compressio n Morbid obesity 187976080 E66.01 recommend weight loss follow-up with PCP [id number] Grady Harden DPM [facility] [address] [address] 1 09/06/2024 10:06:47 09/06/2024 11:48:35 Venous stasis ulcer with edema of left lower leg 0241112958 3653330 L97.929 Profore multilayer compressio n dressing appliedele vation of legs when at restpatien t instructed to obtain a shower cast sock to prevent dressings from getting wet if the dressings become wet they have to be removedFol low-up in 1 week Peripheral venous insufficiency 23723935 I87.2 bilateraln on-complia nt with compressio n Morbid obesity 040978578 E66.01 recommend weight loss follow-up with PCP [id number] [facility] [address] [place] [address] 09/13/2024 10:59:45 09/13/2024 11:53:58 Venous stasis ulcer with edema of left lower leg 6034351386 5287926 L97.929 Profore multilayer compressio n dressing appliedele vation of legs when at restpatien t instructed to obtain a shower cast sock to prevent dressings from getting wet if the dressings become wet they have to be removedFol low-up in 1 week [id number] [facility] [address] [place] [address] 09/20/2024 11:42:03 09/20/2024 14:09:30 Venous stasis ulcer with edema of left lower leg 5160608040 3992140 L97.929 Profore multilayer compressio n dressing appliedele vation of legs when at restpatien t instructed to obtain a shower cast sock to prevent dressings from getting wet if the dressings become wet they have to be removedFol low-up in 1 week [id number] [facility] [address] [place] [address] 09/27/2024 10:28:47 09/27/2024 12:44:32 Venous stasis ulcer with edema of left lower leg 1768256801 0130030 L97.929 Profore multilayer compressio n dressing appliedele vation of legs when at restpatien t instructed to obtain a shower cast sock to prevent dressings from getting wet if the dressings become wet they have to be removedFol low-up in 2 weeks [id number] [facility] [address] [place] [address] 10/04/2024 10:02:46 10/09/2024 10:25:26 [id number] [facility] [address] [place] [address] 10/11/2024 14:11:34 10/11/2024 15:01:50 Venous stasis ulcer with edema of left lower leg 9145296850 9533289 L97.929 Tubigrip dispensedr ecommend daily compressio n with juxta compressio n or compressio n stockingse levation of legs when at restFollow -up in as needed [id number] [facility] [address] [place] [address] 11/01/2024 09:37:34 11/02/2024 12:11:02 Venous stasis ulcer with edema of left lower leg 5656238490 7966845 L97.929 Profore dressing applied left lower legkeep dressing clean dry and intact for 1 weekrecomm end daily compressio n with juxta compressio n or compressio n stockingse levation of legs when at restFollow -up one-week [id number] [facility] [address] [place] [address] 11/09/2024 16:05:27 11/09/2024 17:04:47 [id number] [facility] [address] [place] [address] 11/22/2024 12:20:29 11/22/2024 13:52:39 Venous stasis ulcer with edema of left lower leg [id number] L97.929 Multilayer compressio n dressing applied with gentamicin , left lower legkeep dressing clean dry and intact for 1 weekrecomm end daily compressio nelevation of legs when at restFollow -up one-week [id number] [facility] [address] [place] [address] 11/29/2024 11:46:01 11/29/2024 17:00:46 Venous stasis ulcer with edema of left lower leg [id number] L97.929 Multilayer compressio n dressing applied with gentamicin , left lower legkeep dressing clean dry and intact for 1 weekrecomm end daily compressio nelevation of legs when at restFollow -up one-week [id number] [facility] [address] [place] [address] 12/06/2024 11:58:24 12/07/2024 10:20:34 Venous stasis ulcer with edema of left lower leg [id number] L97.929 Multilayer compressio n dressing applied with gentamicin , left lower legkeep dressing clean dry and intact for 1 weekrecomm end daily compressio nelevation of legs when at restFollow -up one-week [id number] Grady Harden DPM [facility] [address] [place] [address] 12/13/2024 15:13:47 12/13/2024 17:24:25 Venous stasis ulcer with edema of left lower leg [id number] L97.929 Multilayer compressio n dressing applied with gentamicin , left lower legkeep dressing clean dry and intact for 1 weekrecomm end daily compressio nelevation of legs when at restFollow -up one-week [id number] [facility] [address] [place] [address] 12/20/2024 11:11:34 12/20/2024 16:40:24 Venous stasis ulcer with edema of left lower leg [id number] L97.929 Healedreco mmend chronic compressio n stockings, has a homeFollow -up as needed Health Concerns Section Related Observation LastModified by Organization Detai ls LastModified Time None Recorded Concern Status LastModified by Organization Details LastModified Time None Recorded Advance Directives Directive None Recorded Payers Insurance Date Sequence Insurance Name Policy Number Policy Monique Covered Member ID Monique Member ID Guarantor Name 12/20/2024 1 [facility] ON OR AFTER 10/10/20 (MEDICAID REPLACEMENT - HMO) Anabelle Javier [id number] Anabelle Javier Notes Date Note Type Note Provider Name and Address Organization Details Recorded Time 11/22/2024 text/html ROS as noted in the HPI Patient is a 54-year-old male who returns the office for follow-up on lower extremity venous wound to the right lower leg. The wound does appear bigger today he is significantly swollen to the left lower leg he denies any calf pain, fever, chills, nausea or vomiting. Patient states he has been applying the gentamicin to the wound bed but his front man states that she says he is not doing it 3 times daily. Patient denies any other complaints. Grady Harden DPM [address], [address], [place] 11/22/2024 13:20:45 11/29/2024 text/html . Patient is a 54-year-old male returns for venous wound of the lower leg he overall is smaller doing well denies any new complaints. Grady Harden DPM [address], [place], [address], [place] [facility] [employer] 11/29/2024 16:33:35 12/06/2024 text/html ROS as noted in the HPI . Patient is a 54-year-old male who returns for venous insufficiency of the left lower leg he is doing much better with swelling secondary to chronic compression. Patient denies any new complaints in the wound is healing. Grady Haredn DPM [address], [place], [address], [place] 12/07/2024 09:43:46 12/13/2024 text/html . Patient is a 54-year-old male who returns the office for follow-up on venous wound to the left lower leg. Patient's wound is continually healing he has significant reduction in swelling of the left lower leg. Patient denies any new complaints. Patient denies any signs of infection. Grady Harden DPM [address], [place], [address], [place] 12/13/2024 16:01:44 12/20/2024 text/html . Patient is a 54-year-old male who returns the office for venous insufficiency wound of the left lower leg he has ultimately doing well he continues to slowly heal he is doing well with chronic compression he denies any new complaints. Grady Harden DPM [address], [place], [address], [place] [employer] 12/20/2024 11:31:13
--- OUTSIDE RECORDS SUMMARY | 2025-03-22 01:01 | XMS_ITS | Clinical Summary ---
Author Organization [facility] Address [address] [place] [address] Care Team Providers Care Human Resources Admin Name Role Phone Maegan Charles Primary Care Provider [phone] Ryan Dyer MD Unavailable [phone] Chika Umana MD Unavailable [phone] Allergies Active Allergy Reactions Criticality Noted Date [...] Tobacco: Never Tobacco Cessation:Counseling Given: Not Answered [facility] Utilities Answer Date Recorded In the [...] place to sleep or slept in a senior living (including now)? No 07/02/2023 Personal Safety Answer Date Recorded Have you ever been in or are you currently in a harmful physical or emotional relationship or is someone making you feel afraid or unsafe? Denies 07/02/2023 Sex and Gender Information Value Date Recorded Sex Assigned at Not on file Legal Sex Male 6:39 PM [employer] Gender Identity Male 06/15/2022 9:18 AM [employer] Sexual Orientation Not on file Last Filed Vital Signs Vital Sign Reading Time Taken Comments Blood Pressure 129/83 05/15/2024 10:33 AM [employer] Pulse 104 05/15/2024 10:33 AM [employer] Temperature 36.4 C (97.5 F) 05/15/2024 10:33 AM [employer] Respiratory Rate 18 05/15/2024 10:33 AM [employer] Oxygen Saturation 93% 05/15/2024 10:33 AM [employer] Inhaled Oxygen Concentration - - Weight 176.9 kg (390 lb) 05/15/2024 10:33 AM [employer] Height 185.4 cm (6' 1) 05/15/2024 10:33 AM [employer] Body Mass Index 51.45 05/15/2024 10:33 AM [employer] Plan of Treatment Upcoming Encounters Date Type Department Care Team (Late st Contact Info) Description 06/13/2025 11:00 AM [employer] Hospital Encounter [address] [address] Roman Randolph DO [address] [facility] [place] [address] 06/13/2025 11:00 AM [employer] - 06/13/2025 11:30 AM [employer] Surgery [address] [address] Roman Randolph DO [address] [facility] [place] [address] COLONOSCOPY Scheduled Procedures Name Priority Associated Diagnoses Date/Ti me COLONOSCOPY Screening for colon cancer 06/13/2025 11:00 AM [employer] Health Maintenance Due Date Last Done Comments [...] Diagnosis Comments EGFR Routine 05/15/2024 10:22 AM [employer] Acute pulmonary embolism, unspecified pulmonary embolism type, unspecified whether acute cor pulmonale present (HCC) Deep vein thrombosis (DVT) of non-extremity vein, unspecified chronicity HEMOGLOBIN A1C Routine 07/02/2023 3:32 AM CDT LIPID PANEL Routine 07/02/2023 3:32 AM CDT PSA SCREEN Routine 04/26/2019 1:55 PM [employer] from Last 3 Months or Most Recently Relevant to Health Maintenance Results * eGFR (05/15/2024 10:22 AM [employer]) eGFR 90 >=60 mL/min/1. 73 m2 Comment: [...] reviewed 2021. Blood 05/15/2024 10:2 2 AM [employer] 05/15/2024 10:39 AM [employer] Belem Swathi Isaías BOOK CLE[employer]ER LAB BLOOD ORDERABLES Final Result Performing Organization Address [facility] Co de Phone Number POLA EDWARD [facility] [place] [address] * (ABNORMAL) Hemoglobin A1c (07/02/2023 3:32 AM CDT) Hgb A1C 7.2(H) 4.0 - 5.6 % Estimated Average Glucose 160 mg/dL [facility] Comment: The ADA recommends reporting an estimated Average Glucose (eAG) with all Hemoglobin A1c results using the equation derived from a study of 507 normal and diabetic adults. Minority populations were underrepresented and children were not included. (Diabetes Care 31:0434-7418, 2008). The eAG is not equivalent to a fasting glucose. Blood 07/02/2023 3:32 AM CDT 07/02/2023 12:54 PM CDT Jaden Urias DO LAB BLOOD ORDERABLES Final Result Performing Organization Address [facility] Co de Phone Number [facility] [address] Department [place] [address] * (ABNORMAL) Lipid panel (07/02/2023 3:32 AM CDT) Pathologist [facility] Cholesterol 123 30 - 199 mg/dL Comment: [...] revised on 2017. Triglycerides 141 <=149 mg/dL [facility] Comment: Interpretive Data Ages < or = [...] revised on 2017. HDL 33(L) >=40 mg/dL [facility] Comment: Interpretive Data Ages < or = [...] on 2017. LDL, calculated 62 <=129 mg/dL [facility] Comment: Interpretive Data Ages < or = [...] revised on 2017. Non-HDL Cholesterol 90 mg/dL [facility] Comment: Interpretive Data Ages < or = [...] last revised on 2017. Chol/HDL ratio 4 [facility] Blood 07/02/2023 3:32 AM CDT 07/02/2023 3:39 AM CDT us Dagoberto Coffey MD LAB BLOOD ORDERABLES Final Re sult [facility] [address] [place] [address] * PSA screen (04/26/2019 1:55 PM [employer]) PSA Screen 0.2 0.0 - 3.9 ng/mL [facility] Comment: Method: ECLIA Values obtained by different assay methods cannot be used interchangeably. Use sequential testing to confirm baseline if assay method changed during patient monitoring. 04/26/2019 1:55 PM [employer] 04/26/2019 2:16 PM [employer] Narrative Resulting Agency Comment IN us Pastora Carr NP LAB BLOOD ORDERABLES Final Result [facility] [address] [place], [place] [id number] [place] [address] from Last 3 Months or Most Recently Relevant to Health Maintenance Insurance [facility] Advance Directives For more information, please contact: [phone] * Full Code (Latest Code Status on File) Date Activated Date Inactivated Comments 07/01/2023 7:38 PM 07/05/2023 1:13 AM * Full Code Date Activated Date Inactivated Comments 05/27/2022 11:50 AM 06/11/2022 7:32 PM Care Teams Human Resources Admin Relationship Specialty Start Date End Date Maegan Charles PA [facility] [place] [address] PCP - General Physician Reject Opener And Filler 05/28/22 Ryan Dyer MD [address] [place] [address] 05/28/22 Chika Umana MD [address] [place] [address] Medical Oncologist/Feed Blender Hematology 07/04/23
[2025-03-22 01:25] LABS: Hematocrit 40.8 % (42.0-52.0); Hemoglobin 13.5 g/dL (14.0-18.0); Immature Granulocyte Percent A 0.4 % (0-0.5); Lymphocytes Absolute Auto 1.02 K/mm3 (0.9-3.2); Mean Corpuscular HGB Conc 33.1 g/dl (32-36); Mean Corpuscular Hemoglobin 29.2 pg (26-34); Mean Corpuscular Volume 88.3 fl (80-100); Nucleated Red Blood Cells Absolute Auto 0.000 K/mm3 (0.0-0.012); Nucleated Red Blood Cells Perc 0.0 % (0.0-0.2); Platelet Count Result 257 k/mm3 (150-375); Red Blood Count 4.62 M/mm3 (4.6-6.20); White Blood Count 8.5 K/mm3 (4.5-10.0)
[2025-03-22 01:33] LABS: Alanine Aminotransferase 21 U/L (6-50); Albumin Level 4.0 g/dL (3.5-5.1); Alkaline Phosphatase 94 U/L (38-126); Anion Gap 5 mmol/L (4-12); Aspartate Amino Transferase 26 U/L (17-59); Bilirubin,Total 0.4 mg/dL (0.2-1.3); Blood Urea Nitrogen 12 mg/dL (9-20); Calcium 8.9 mg/dL (8.4-10.2); Carbon Dioxide 28 mmol/L (22-30); Chloride 102 mmol/L (98-107); Estimated CRCL calculation 111 ml/min; Estimated Glomerular Filt Rate > 60; Glucose 166 mg/dL (65-110); Lipase 67 U/L (23-300); Magnesium 2.0 mg/dL (1.6-2.3); Potassium 4.5 mmol/L (3.4-5.0); Sodium 135 mmol/L (137-145); Total Protein 8.0 g/dL (6.3-8.2)
[2025-03-22 01:43] VITALS: BP 142/77; PULSE 56; RESP 16; TEMP 36.8; O2SAT 100
[2025-03-22 01:44] VITALS: PULSE 60
[2025-03-22] MEDS: SODIUM CHLORIDE 0.9% IV 1,000 ML 999 ML IV CONT (01:47)
[2025-03-22] MEDS: ONDANSETRON INJ 4 MG/2 ML VIAL IV PUSH (01:47)
--- NOTE | 2025-03-22 02:03 | PC.NURSE ---
This RN called pt chummer Ambar and she is on the way to pick pt up. [phone]
== END 2025-03-22 02:05 | disposition home or self-care (01) ==
PROVIDERS: Emergency Provider Student in an Organized Health Care Education/Training Program; PCP Physician Assistant
DX: T40.711A Poisoning by cannabis, accidental (unintentional), initial encounter (principal); R11.0 Nausea; R00.1 Bradycardia, unspecified
CPT/HCPCS: 36415; 80053; 83690; 83735; 85025; 93005; 96361; 96374; 99284; J2405; J7030